=== PATIENT | male | born 1995 | race Caucasian/White ===

== ENCOUNTER 2017-05-24 20:53 | Emergency (ER) | payer BC ==
[2017-05-24 20:58] VITALS: BP 159/83; PULSE 75; RESP 18; TEMP 97.9; O2SAT 97
[2017-05-24] MEDS ORDERED: ACETAMINOPHEN 325 MG TAB PO ONE (21:10)
--- NOTE | 2017-05-24 21:12 | EDPHY ---
H & P Time Seen by Provider: 05/24/17 20:58 HPI/ROS: CHIEF COMPLAINT: Head injury HISTORY OF PRESENT ILLNESS: At 7:00 p.m.. Patient was going down stairs to the basement in a new house. Historically likes to jump from the 3rd to the lowest stair but for got the ceiling was low and hit head. Presents with continued headache as well as feeling a little bit clumsy having dropped a krishnan off the stove today. Feels clumsy. No neck pain and no weakness or numbness in extremities. No loss conscious or seizure activity. No anticoagulants. REVIEW OF SYSTEMS: Eye: no change in vision or double vision ENT: no sore throat Cardiac: no chest pain or syncope Pulmonary: no cough or SOB Abdomen: No vomiting Musculoskeletal: no back pain or neck pain Skin: no rash Neuro: Moderate headache as above Constitutional: no fever : no urinary symptoms A comprehensive 10 point review of systems is otherwise negative aside from elements mentioned in the history of present illness. PAST MEDICAL HISTORY: Irritable bowel, takes testosterone for gender dysphoria Social history: Here with partner General Appearance: Alert and conversant, cooperative. Eyes: No scleral icterus. ENT, Mouth: Normal mucous membranes. No hemotympanum and no scalp hematoma or laceration. Respiratory: Normal respiratory effort, breath sounds equal, lungs are clear to auscultation. Cardiovascular: Regular rate and rhythm. Gastrointestinal: Abdomen is soft and non tender. Neurological: Alert and oriented x3. Normally conversant. Face symmetric, normal movement and sensation in all extremities. Normal [id number] and no pronator drift bilaterally, negative Romberg, no ataxic, can do tandem gait. 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 Skin: Warm and dry, no rashes. Musculoskeletal: No midline spinal tenderness. Psychiatric: Not agitated. Emergency Department course/MDM: Patient presents with likely concussion. I think I have a low suspicion for intracranial bleed subdural or epidural or skull fracture. Patient is warned avoid contact sports. Head injury instructions discussed with the patient's partner. Referral to [facility] if not improving. Tylenol for headache. Smoking Status: Never smoked Constitutional: Initial Vital Signs Temperature (C) 36.6 C 05/24/17 20:54 Heart Rate 75 05/24/17 20:54 Respiratory Rate 18 05/24/17 20:54 Blood Pressure 159/83 H 05/24/17 20:54 O2 Sat (%) 97 05/24/17 20:54 O2 Delivery Mode Room Air Allergies/Adverse Reactions: No Known Allergies Allergy (Unverified 05/24/17 20:58) Home Medications: Medication Instructions Recorded TESTOSTERONE 50 mg 05/24/17 MDM/Departure - MDM Medications Given: Discontinued Medications Acetaminophen (Tylenol) 650 mg PO EDNOW ONE Stop: 05/24/17 21:11 Last Admin: 05/24/17 21:13 Dose: 650 mg - Depart Disposition: Home, Routine, Self-Care Clinical Impression: Concussion Qualifiers: Encounter type: initial encounter Loss of consciousness presence/duration: without LOC Qualified Code(s): S06.0X0A - Concussion without loss of consciousness, initial encounter Condition: Good Instructions: Concussion (ED) Additional Instructions: Trying to avoid bright lights or loud noises or increased brain concentration for at least the next 24 hours. Please follow-up with work later this week if you continue to have symptoms. Tonight have your partner wake you up every 4 hours to check for symptoms of worsening head injury. No potentially contact sports or activities until symptoms completely resolved. Referrals: [facility] D[facility],. [Clinic] - As per Instructions
== END 2017-05-24 21:26 | disposition home or self-care (01) ==
DX: S06.0X0A Concussion without loss of consciousness, initial encounter (principal); W22.8XXA Striking against or struck by other objects, initial encounter; Y92.89 Other specified places as the place of occurrence of the external cause; Y93.39 Activity, other involving climbing, rappelling and jumping off